=== PATIENT | female | born 1960 | race Caucasian/White ===

== ENCOUNTER 2017-12-19 06:15 | Day surgery (SDC) | payer OTHER ==
[2017-12-19] MEDS ORDERED: LR 1,000 ML IV ONE (07:01)
--- NOTE | 2017-12-19 07:10 | PDANEPAE ---
ANE History of Present Illness 57 year old female presents for wide local excision of labia. ANE Past Medical History - Cardiovascular History Hx Hypertension: Yes Hx Arrhythmias: No Hx Chest Pain: No Hx Coronary Artery / Peripheral Vascular Disease: No Hx CHF / Valvular Disease: No Hx Palpitations: No - Pulmonary History Hx COPD: No Hx Asthma/Reactive Airway Disease: No Hx Recent Upper Respiratory Infection: No Hx Oxygen in Use at Home: No Hx Sleep Apnea: No Sleep Apnea Screening Result - Last Documented: Negative - Neurologic History Hx Cerebrovascular Accident: No Hx Seizures: No Hx Dementia: No - Endocrine History Hx Diabetes: No - Renal History Hx Renal Disorders: No Renal History Comment: kidney stones - Liver History Hx Hepatic Disorders: No - Neurological & Psychiatric Hx Hx Neurological and Psychiatric Disorders: No - Cancer History Hx Cancer: No - Congenital Disorder History Hx Congenital Disorders: No - GI History Hx Gastrointestinal Disorders: Yes Gastrointestinal History Comment: IBS - Other Health History Other Health History: none - Chronic Pain History Chronic Pain: No - Surgical History Prior Surgeries: none ANE Review of Systems Review of systems is: negative Review of Systems: - Exercise capacity Exercise capacity: >=4 METS METS (RN): 4 METS ANE Patient History - Allergies Allergies/Adverse Reactions: No Known Allergies Allergy (Verified 12/19/17 07:02) - Home Medications Home medications: home medication list seen and reviewed Home Medications: Benadryl Oral Liquid 11/25/17 [Last Taken Unknown] Librax (*) 11/25/17 [Last Taken 12/18/17 09:00] Lisinopril 11/25/17 [Last Taken 12/18/17 09:00] - NPO status NPO Status: no food or drink >8 hours NPO Since - Liquids (Date): 12/18/17 NPO Since - Liquids (Time): 22:00 NPO Since - Solids (Date): 12/18/17 NPO Since - Solids (Time): 12:00 - Anes Hx Anes Hx: no prior problems - Smoking Hx Smoking Status: Former smoker Marijuana use: No - Alcohol Use Alcohol Use: Rarely - Family Anes Hx Family Anes Hx: neg - N/A Family Hx Anesthesia Complications: none ANE Labs/Vital Signs - Vital Signs Vital Signs: reviewed preoperatively; see RN documention for details Blood Pressure: 150/95 Heart Rate: 79 Respiratory Rate: 16 O2 Sat (%): 98 Height: 154.94 cm Weight: 61.235 kg ANE Physical Exam - Airway Neck exam: FROM Mallampati Score: Class 2 Mouth exam: normal dental/mouth exam - Pulmonary Pulmonary: no respiratory distress - Cardiovascular Cardiovascular: regular rate and rhythym - ASA Status ASA Status: II ANE Anesthesia Plan Anesthesia Plan: GA w LMA Total IV Anesthesia: No
[2017-12-19] MEDS ORDERED: BUPIVACAINE 0.25% 30 ML SDV ONE (07:16)
[2017-12-19] MEDS ORDERED: MIDAZOLAM 2 MG/2 ML VIAL IVP ONE (07:33)
[2017-12-19] MEDS ORDERED: fentaNYL 100 MCG/2 ML INJ ONE (07:55)
[2017-12-19] MEDS ORDERED: PROPOFOL/EMULSION 500 MG/50 ML BOTTLE IV ONE (07:55)
--- NOTE | 2017-12-19 08:21 | PDHPUP ---
History & Physical Update H&P update statement: This history and physical update is based on an assessment of the patient which was completed after admission or registration (within 24 hours), but prior to the surgery/procedure. H&P update: H&P reviewed & patient examined, no change in patient's condition since H&P completed
[2017-12-19] MEDS ORDERED: ONDANSETRON 4 MG/2 ML VIAL IVP PRN (08:43)
[2017-12-19] MEDS ORDERED: LR 500 ML IV PRN (08:43)
[2017-12-19] MEDS ORDERED: NALOXONE HCL 0.4 MG/ML INJ IVP PRN (08:43)
[2017-12-19] MEDS ORDERED: fentaNYL 100 MCG/2 ML INJ IVP PRN (08:43)
[2017-12-19] MEDS ORDERED: HYDROCODONE/APAP 5/325 TAB PO PRN (08:43)
--- NOTE | 2017-12-19 09:40 | POSTANESTH ---
Post Anesthetic Evaluation Cardiovascular Status: Normal, Stable, Similar to Pre-Op Cond Respiratory Status: Normal, Stable, Similar to Pre-op Cond. Level of Consciousness/Mental Status: Can Participate in Eval, Alert and Oriented Pain Control: Adequate, Prn Tx Ordered Nausea/Vomiting Control: Adequate, Prn Tx Ordered Complications Possibly Related to Anesthesia: None Noted (Patient did great.)
--- NOTE | 2017-12-19 09:51 | POSTOPPROG ---
Post Op Note Date of Operation: 12/19/17 Surgeon: Denise Prince Anesthesiologist: Jamie Pardo Anesthesia: LMA Pre-op Diagnosis: vulvar lesion Post-op Diagnosis: vulvar lesion Indication: abnormal discoloration of vulva Procedure: wide local excision Findings: left labia minora darkened area Inf/Abcess present in the surg proc area at time of surgery?: No EBL: Minimal
[2017-12-19 10:08] VITALS: BP 140/98
--- NOTE | 2017-12-19 10:55 | GOP ---
[f rep st] OPERATIVE REPORT DATE OF OPERATION: 12/19/2017 SURGEON: Denise Prince MD ANESTHESIA: General with LMA. ANESTHESIOLOGIST: Jamie Pardo MD. PREOPERATIVE DIAGNOSIS: Discolored vulvar lesion. POSTOPERATIVE DIAGNOSIS: Discolored vulvar lesion. PROCEDURE PERFORMED: Wide local excision of left labia majora and minora. FINDINGS: On the left labia minora is a thickened dark area and lateral to this in between the left labia majora and minora is another skin lesion that is irregular in appearance and does not connect s ignificantly to the other labial lesion. ESTIMATED BLOOD LOSS: Minimal. DESCRIPTION OF PROCEDURE: With informed consent signed, patient taken to the operating room and [facility] ed under general anesthesia, placed in low dorsal lithotomy position and prepped and draped in the [facility] sterile fashion. Bladder had previously been emptied. The area was injected with 0.25% Marcaine approximately 6 cc and then a marker was used to define the scalpel line and I did this to incorpora te both lesions in the same path specimen. So, this started at the superior aspect of the lateral le dorothy and carried down over to the left labia minora and incorporated the entire left labia minora and down to just near the introitus of the vagina. The scalpel was used to dissect this tissue and then this was handed off for specimen. There were 2 smaller areas that I removed to mostly have the tiss ue edges lined up better but sent this for path as medial tissue margins. Hemostasis was obtained wi th cautery and then the tissue edges were brought together with a 4-0 Monocryl and a 3-0 Monocryl sut ure. Hemostasis was noted. Patient then awakened in the operating room and taken to the recovery ro om in stable. Tolerating the procedure well. 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 Because it had a whitened area and was irritating she had been on clobetasol off and on for the past year. In October of 2017, n oted that this area was becoming thicker and more discolored in a dark fashion and we recommended rep eat biopsy and patient declined. She wanted the procedure to be done in the operating room, so is he re for that today. COMPLICATIONS: None. /[id number]/MODL
== END 2017-12-19 10:30 | disposition home or self-care (01) ==
LOC: FSGY 06:15
PROVIDERS: ATTEND Obstetrics & Gynecology Gynecology
PROC: 0UBMXZZ Excision of Vulva, External Approach (ICD-10-PCS; principal; 2017-12-19 08:00)
DX: C51.9 Malignant neoplasm of vulva, unspecified (principal); I10 Essential (primary) hypertension; Z72.0 Tobacco use
CPT/HCPCS: J2250; J2704; J3010